=== PATIENT | male | born 1950 | race Caucasian/White ===

== ENCOUNTER → 2016-06-14 | Outpatient (CLI) | payer OTHER ==
[~2016-06-14] MED LIST: ACET-1138 PO; ASPEC81 PO; CLB200 PO; CLC100 PO; MULT-506 PO; OXYSR10 PO; RXC5 PO; SULF1TAB92 PO; TRIATAB3 PO
== END | disposition home or self-care (01) ==
LOC: C.CPL 14:49
PROVIDERS: ATTEND Orthopaedic Surgery
DX: Z01.810 Encounter for preprocedural cardiovascular examination (principal)